=== PATIENT | male | born 1990 | race Caucasian/White ===

== ENCOUNTER 2017-03-21 07:17 | Emergency (ER) | payer OTHER ==
[2017-03-21 07:33] VITALS: BP 161/93
[2017-03-21] MEDS ORDERED: diphenhydrAMINE 50 MG/ML SDV IM ONE (07:41)
[2017-03-21] MEDS ORDERED: methylPREDNISolone Sodium Succinate 40 MG/1 ML SDV IM ONE (07:41)
--- NOTE | 2017-03-21 07:46 | EDM.PDOC ---
ED HPI GENERAL MEDICAL PROBLEM - General Chief Complaint: ENT Problem Stated Complaint: ISSUES BREATHING/SINUSES Time Seen by Provider: 03/21/17 07:39 Source of Information: Reports: Patient, Family, RN Notes Reviewed History Limitations: Reports: No Limitations - History of Present Illness INITIAL COMMENTS - FREE TEXT/NARRATIVE: 26-year-old gentleman presents emergency department day with swollen uvula, he has a known history of allergies he is up here [place] staying [place] cabin. He states the symptoms started last night difficulty breathing through his nose difficulty swallowing he did take some Benadryl which seemed to help this morning his uvula has gotten worse. Denies any fevers no shortness of breath or chest pain Throat Pain Score (Numeric/FACES): 3 - Related Data Allergies Allergy/AdvReac Type Severity Reaction Status Date / Time No Known Allergies Allergy Verified 03/21/17 07:40 Home Meds: Home Meds Adalimumab [Humira] 40 mg SQ ASDIRECTED 03/21/17 [History] Cetirizine [ZyrTEC] 1 tab PO DAILY 03/21/17 [History] Past Medical History Dermatologic History: Reports: Other (See Below) (environmental allergies) Social & Family History - Tobacco Use Smoking Status *Q: Never Smoker ED ROS ENT - Review of Systems Review Of Systems: See Below Constitutional: Denies: Fever, Chills HEENT: Reports: Throat Pain, Throat Swelling Respiratory: Reports: No Symptoms Cardiovascular: Reports: No Symptoms GI/Abdominal: Reports: No Symptoms : Reports: No Symptoms Neurological: Reports: No Symptoms ED EXAM, ENT - Physical Exam Exam: See Below Exam Limited By: No Limitations General Appearance: Alert, WD/WN, No Apparent Distress Eye Exam: Bilateral Eye: Normal Inspection Ears: Normal External Exam, Normal Canal, Cerumen Impaction Nose: Normal Inspection, Normal Mucousa, No Blood Mouth/Throat: Normal Inspection, Normal Gums, Normal Lips, Uvular Edema Head: Atraumatic, Normocephalic Neck: Normal Inspection, Supple, Non-Tender, Full Range of Motion Respiratory/Chest: No Respiratory Distress, Lungs Clear, Normal Breath Sounds, No Accessory Muscle Use Cardiovascular: Regular Rate, Rhythm, No Murmur Course - Vital Signs Last Recorded V/S: Last Vital Signs Temp 97.1 F 03/21/17 07:39 Pulse 84 03/21/17 07:39 Resp 16 03/21/17 07:39 BP 161/93 H 03/21/17 07:39 Pulse Ox 96 03/21/17 07:39 - Orders/Labs/Meds Meds: Medications Discontinued Medications Generic Name Dose Route Start Last Admin Trade Name Rebeca PRN Reason Stop Dose Admin Diphenhydramine HCl 50 mg 03/21/17 07:41 03/21/17 07:47 Benadryl IM 03/21/17 07:42 50 mg ONETIME ONE Administration Methylprednisolone Sodium Succinate 40 mg 03/21/17 07:41 03/21/17 07:47 Solu-Medrol IM 03/21/17 07:42 40 mg ONETIME ONE Administration Departure - Departure Time of Disposition: 08:12 Disposition: Home, Self-Care 01 Condition: Good Clinical Impression: Uvular swelling - Discharge Information Referrals: PCP,None [Primary Care Provider] - Forms: ED Department Discharge Additional Instructions: Take full course of prednisone, use Benadryl as needed for symptomatically, please follow-up with your primary care provider upon return home if no improvement call or return to the emergency department with worsening of symptoms - Assessment/Plan Plan: Assessment Acuity = acute Site and laterality = uvula edema Etiology = probably secondary to allergies environmental Manifestations = dysphagia Location of injury = Home Lab values = none Plan Treated in the ED with combination 40 mg Solu-Medrol and 50 mg Benadryl IM discharge home with the prednisone 20 mg once a day for the next 5 days Benadryl as needed follow-up with primary care upon return home Patient was in agreement with the plan all questions were answered, they were instructed to return to the emergency department or call for worsening symptoms. This note was dictated using [employer] voice recognition software please call with any questions.
== END 2017-03-21 08:22 | disposition home or self-care (01) ==
LOC: JP.ED 07:17
DX: R22.1 Localized swelling, mass and lump, neck (principal); X58.XXXA Exposure to other specified factors, initial encounter
CPT/HCPCS: 96372; 99285; J1200; J2920